=== PATIENT | female | born 1990 | race Caucasian/White ===

== ENCOUNTER 2021-09-03 08:56 | Day surgery (SDC) | payer BC ==
[2021-09-03 10:23] LABS: INR 3.03 (0.8-3.0); PROTIME 35.8 SECONDS (9.4-12.5)
[2021-09-03] MEDS ORDERED: DIPRIVAN 200 MG/20 ML IV ONE (11:15)
[2021-09-03] MEDS ORDERED: Lactated Ringers 1,000 ML IV ONE (11:24)
--- NOTE | 2021-09-03 12:40 | XRAY ---
Indication: Left SI joint injection. Intraoperative fluoroscopy provided for 8 seconds. 2 digital spot image submitted for interpretation demonstrates posterior needle tip projecting over the inferior left SI joint. Correlate with intraoperative findings/report.
--- NOTE | 2021-09-03 14:06 | XRAY ---
8 seconds fluoroscopy time in surgery for injection of the left SI joint.
== END 2021-09-03 11:30 | disposition home or self-care (01) ==
LOC: SDC-PAIN 08:56
PROVIDERS: ATTEND Psychiatry & Neurology Pain Medicine
DX: M46.1 Sacroiliitis, not elsewhere classified (principal); Z79.899 Other long term (current) drug therapy; Z79.01 Long term (current) use of anticoagulants
CPT/HCPCS: 36415; 72020; 77002; 85610; J2704

== ENCOUNTER 2021-10-01 08:18 | Day surgery (SDC) | payer BC ==
[2021-10-01] MEDS ORDERED: LIDOCAINE HCL 2% 100 MG/5 ML IJ ONE (08:19)
[2021-10-01] MEDS ORDERED: Decadron 4 MG INJ IV ONE (08:19)
[2021-10-01] MEDS ORDERED: Versed 2 MG/2 ML Injection ONE ×2 (08:57→09:21)
[2021-10-01 09:04] LABS: INR 0.97 (0.8-3.0); PROTIME 11.4 SECONDS (9.4-12.5)
[2021-10-01] MEDS ORDERED: Lactated Ringers 1,000 ML IV ONE (09:54)
[2021-10-01] MEDS ORDERED: DIPRIVAN 200 MG/20 ML IV ONE (10:21)
--- NOTE | 2021-10-01 10:57 | XRAY ---
Indication: Right C2-C4 MBB. Intraoperative fluoroscopy provided for 17 seconds. 2 digital spot images submitted for interpretation demonstrates posterior needle tips projecting over the expected right C2-C4 nerve roots. Correlate with intraoperative findings/report.
--- NOTE | 2021-10-01 12:46 | XRAY ---
17 seconds of fluoroscopy was used in surgery for a right C2-C4 MBB.
== END 2021-10-01 10:49 | disposition home or self-care (01) ==
LOC: SDC-PAIN 08:18
PROVIDERS: ATTEND Psychiatry & Neurology Pain Medicine
DX: M47.812 Spondylosis without myelopathy or radiculopathy, cervical region (principal); Z79.899 Other long term (current) drug therapy
CPT/HCPCS: 36415; 64490; 64491; 72040; 77002; 85610; J1100; J2250; J2704

== ENCOUNTER 2022-03-25 11:36 | Day surgery (SDC) | payer BC ==
[2022-03-25] MEDS ORDERED: BUPIVACAINE 0.5% VIAL IJ ONE (11:37)
[2022-03-25] MEDS ORDERED: Decadron 4 MG INJ IV ONE (11:37)
[2022-03-25] MEDS ORDERED: Versed 2 MG/2 ML Injection ONE (12:25)
[2022-03-25 12:39] LABS: INR 0.99 (0.8-3.0); PROTIME 10.5 SECONDS (9.4-12.5)
[2022-03-25] MEDS ORDERED: DIPRIVAN 200 MG/20 ML IV ONE (14:10)
--- NOTE | 2022-03-25 15:04 | XRAY ---
Indication: Right C2-C4 MBB. Intraoperative fluoroscopy provided for 26 seconds. 6 digital spot images submitted for interpretation demonstrates posterior needle tips projecting over the expected right C2-C4 nerve roots. Correlate with intraoperative findings/report.
--- NOTE | 2022-03-25 15:18 | XRAY ---
26 seconds of fluoroscopy was used in surgery for a right C2-C4 MBB.
[2022-03-25] MEDS ORDERED: Lactated Ringers 1,000 ML IV ONE (15:49)
== END 2022-03-25 14:40 | disposition home or self-care (01) ==
LOC: SDC-PAIN 11:36
PROVIDERS: ATTEND Psychiatry & Neurology Pain Medicine
DX: M47.812 Spondylosis without myelopathy or radiculopathy, cervical region (principal); Z79.01 Long term (current) use of anticoagulants
CPT/HCPCS: 36415; 64490; 64491; 72040; 77002; 85610; J1100; J2250; J2704

== ENCOUNTER 2022-05-14 09:31 | Day surgery (SDC) | payer BC ==
[2022-05-14] MEDS ORDERED: Decadron 4 MG INJ IV ONE (09:32)
[2022-05-14] MEDS ORDERED: LIDOCAINE HCL 1% 50 MG/5 ML VL PF IJ ONE (09:32)
[2022-05-14] MEDS ORDERED: BUPIVACAINE 0.5% VIAL IJ ONE (09:32)
[2022-05-14 10:41] LABS: INR 1.02 (0.8-3.0); PROTIME 10.8 SECONDS (9.4-12.5)
[2022-05-14] MEDS ORDERED: Versed 2 MG/2 ML Injection ONE (10:48)
[2022-05-14] MEDS ORDERED: DIPRIVAN 200 MG/20 ML IV ONE (11:37)
[2022-05-14] MEDS ORDERED: Lactated Ringers 1,000 ML IV ONE (13:30)
--- NOTE | 2022-05-14 13:30 | XRAY ---
Indication: Right C2-C4 RFA. Intraoperative fluoroscopy provided for 30 seconds. 2 digital spot image submitted for interpretation demonstrates posterior needle tips projecting over the expected right C2-C4 nerve roots. Correlate with intraoperative findings/report.
--- NOTE | 2022-05-14 13:41 | XRAY ---
30 seconds fluoroscopy time in surgery for right C2-C4 RFA.
== END 2022-05-14 12:10 | disposition home or self-care (01) ==
LOC: SDC-PAIN 09:31
PROVIDERS: ATTEND Psychiatry & Neurology Pain Medicine
DX: M47.812 Spondylosis without myelopathy or radiculopathy, cervical region (principal); Z79.899 Other long term (current) drug therapy; Z79.01 Long term (current) use of anticoagulants
CPT/HCPCS: 36415; 64633; 64634; 72040; 77002; 85610; J1100; J2001; J2250; J2704